=== PATIENT | female | born 1980 | race Caucasian/White ===

== ENCOUNTER 2017-06-01 12:58 | Day surgery (SDC) | payer OTHER ==
[2017-05-31 15:47] VITALS: BMI 28.4
[2017-06-01] VITALS (13 sets, daily range): BP systolic 95–117; BP diastolic 44–84; PULSE 56–65; RESP 14–19; Ht 162.6 cm; Wt 81.1 kg
[~2017-06-01] VITALS: Ht 162.6 cm; Wt 81.1 kg
[2017-06-01] MEDS ORDERED: BACITRACIN 0.9 GM OINT ONE (15:00)
[2017-06-01] MEDS ORDERED: MIDAZOLAM 1 MG/ML 2 ML INJ ONE (15:04)
[2017-06-01] MEDS ORDERED: FENTAnyl 50 MCG/ML VIAL ONE (15:04)
[2017-06-01] MEDS ORDERED: PROPOFOL 20 ML ONE (15:04)
[2017-06-01] MEDS ORDERED: LIDOCAINE 1% (MDV) 20 ML INJ ONE (15:04)
--- NOTE | 2017-06-01 15:22 | HPN ---
Date/Time of Note Date/Time of Note DATE: 06/01/17 TIME: 15:22 Interval H&P Admission Note Pt. seen H&P reviewed: No system changes TOBI DUNAWAY Jun 01, 2017 15:22
[2017-06-01] MEDS ORDERED: ACETAMINOPHEN 1000MG/100ML IV 100 ML ONE (15:30)
[2017-06-01] MEDS ORDERED: KETOROLAC 30 MG INJ ONE (15:30)
[2017-06-01] MEDS ORDERED: CEFAZOLIN 1 GM INJ ONE (15:33)
[2017-06-01] MEDS ORDERED: BUPIVACAINE 0.25% (MPF) 10 ML 10 ML VIAL ONE (15:35)
[2017-06-01] MEDS ORDERED: LIDOCAINE 1% (STERILE-PAK) 30 ML INJ ONE (15:35)
[2017-06-01] MEDS ORDERED: ONDANSETRON 4 MG INJ ONE (15:36)
[2017-06-01] MEDS ORDERED: POLYMYXIN/BACITRACIN 1L IRRIG ONE (15:36)
--- NOTE | 2017-06-01 16:56 | OPPN ---
Date/Time of Note Date/Time of Note DATE: 06/01/17 TIME: 16:55 Operative Report Preoperative Diagnosis right ring finger mass Postoperative Diagnosis right ring finger mass Operation/Procedure Performed excision right ring finger mass Surgeon see signature line assistant in nursing none Anesthesia: MAC, other Estimated blood loss: 0 - 10 ml's Transfusion Required none Specimen right ring finger mass Grafts/Implants none Complications none TOBI DUNAWAY Jun 01, 2017 16:55
--- NOTE | 2017-06-01 18:52 | OPR ---
DATE OF OPERATION: 06/01/2017 SURGEON: Liban Hess MD ANESTHESIA: Local MAC. PREOPERATIVE DIAGNOSIS: Right ring finger mass measuring 2 cm x 1 cm. 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 PROCEDURE: Excision of deep mass, right ring finger, measuring 2 cm x 1 cm. 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 INDICATION FOR PROCEDURE: This is a 37-year-old female with longstanding right ring finger mass. It was increasing in size and causing discomfort. The patient elected to proceed with surgical excision, understanding risks, benefits. DESCRIPTION PROCEDURE: The patient was seen in the preoperative area. All further questions were answered. Again, she gave informed consent. She understood the risks and benefits. She was taken to the operative suite, placed in supine position. Ancef 2 grams IV was given, and tourniquet was placed in the right upper extremity. Right upper extremity was prepped with ChloraPrep stick and draped in the usual sterile fashion. Esmarch bandage was used to exsanguinate the extremity. Tourniquet was inflated to 250 mmHg. Attention was turned to the right ring finger mass in the volar aspect of the right ring finger, and an oblique type incision over the volar base of the right ring finger was utilized with sharp dissection carried down through skin and subcutaneous tissue. The mass was identified and was communicating down to the flexor sheath. The radial neurovascular bundle was involved and was carefully dissected away. With the neurovascular bundle retracted, the mass was completely excised down to its base at the flexor sheath at the base of the right ring finger. The mass was completely excised. The wound was then copiously irrigated. Skin closed with 5-0 nylon. Xeroform placed over the wound followed by sterile gauze and a Coban dressing. Tourniquet deflated after 17 minutes. The patient was awakened from anesthesia. She was taken to the postop suite in stable condition and tolerated the procedure well without complication. Right ring finger was pink, warm and well perfused after the tourniquet was deflated. SPECIMENS: Right ring finger mass. EBL: Five mL. COUNTS: Sponge and needle counts correct. TOURNIQUET TIME: 17 minutes. CONDITION ON DISCHARGE: Stable. Dictated By: Liban Hess MD /[email or web address] /Document#: [id number] [email or web address]
== END 2017-06-01 17:35 | disposition home or self-care (01) ==
LOC: SDS 12:58
PROVIDERS: ATTEND Orthopaedic Surgery Hand Surgery
DX: D48.1 Neoplasm of uncertain behavior of connective and other soft tissue (principal)
CPT/HCPCS: 26111; 84703; 88307; J0131; J0690; J1885; J2250; J2405; J3010; Z7512; Z7610